=== PATIENT | male | born 1955 ===

== ENCOUNTER 2018-02-04 07:45 | Day surgery (SDC) | payer SELFPAY ==
[2018-02-01 10:53] VITALS: BMI 28.7
[2018-02-04] MEDS: cefTRIAXone 1 gm 1 GM/100 ML BAG IVPB ONE (09:30)
[2018-02-04] MEDS: Lidocaine 2% Jelly (Uro-Jet) ONE (09:32)
[2018-02-04] MEDS: Gentamicin 160 MG in Sodium Chloride 0.9% 100 ML IVPB ONE (09:35)
[2018-02-04] MEDS ORDERED: HYDROmorphone 0.5 mg/0.5 ml ISec IVP PRN (10:03)
[2018-02-04] MEDS ORDERED: Lidocaine 2% Jelly (Uro-Jet) ONE (10:19)
[2018-02-04 11:16] VITALS: RESP 18; TEMP 97.7
[2018-02-04 11:51] VITALS: BP 143/81; PULSE 65; O2SAT 99
--- NOTE | 2018-02-04 20:57 | OP ---
PROCEDURE DATE: 02/04/2018 PREOPERATIVE DIAGNOSIS: Elevated prostate specific antigen of 3.7. POSTOPERATIVE DIAGNOSIS: Elevated prostate specific antigen of 3.7 and benign prostatic hyperplasia. PROCEDURES: Transrectal ultrasound diagnostic, transrectal ultrasound guidance, and prostatic biopsy. SURGEON: Satish Castelan MD. DESCRIPTION OF PROCEDURE: The patient confirmed in the holding area, he has not taken any NSAIDs for over a week. Potential side-effects that could include serious life threatening sepsis were mentioned to the patient, and he was instructed to call my office today when he gets home for a followup appointment in one week in the office. The patient was brought to the operating room, placed in a lithotomy position, prepped and draped in usual fashion. He was pre-medicated with 1 g of Rocephin and 160 mg of gentamicin IV piggyback. The ultrasound transducer was introduced in the rectum and examination of the prostate revealed no areas of calcifications. There was one area of hypoechogenicity in the right side, and we were able to biopsy this when we did the right central biopsies. Total gland volume was 63 cm although admittedly I had some difficulty in the bladder area visualization and perhaps was even bigger and what could I demonstrate whether there was a median lobe; however, median lobe had been seen previously on cystoscopy. We now turned our attention to biopsies. Two biopsies per sextant were sent to pathology and then we maintained moderate pressure for 5 minutes afterwards to promote hemostasis. I should mention that the rectum was cleansed with Betadine prior to starting the procedure. We removed the transducer after the procedure. No bleeding was noted. The patient tolerated the procedure well. Satish Castelan MD
== END 2018-02-04 11:40 | disposition home or self-care (01) ==
LOC: C.SDS 07:45
PROVIDERS: ATTEND Urology
DX: R97.20 Elevated prostate specific antigen [PSA] (principal); N40.0 Benign prostatic hyperplasia without lower urinary tract symptoms

== ENCOUNTER 2018-08-17 08:39 | Outpatient (CLI) | payer SELFPAY | END 2018-08-17 08:40 | disposition home or self-care (01) | LOC: C.USIC 08:39 ==

== ENCOUNTER 2018-09-07 13:00 | Observation (INO) | payer SELFPAY | END 2018-09-08 14:50 | disposition home or self-care (01) | LOC: C.SDS 13:00 → C.9S 16:47 → C.6T 18:11 | DX: N40.1 Benign prostatic hyperplasia with lower urinary tract symptoms (principal); R33.9 Retention of urine, unspecified; E78.5 Hyperlipidemia, unspecified; Z87.891 Personal history of nicotine dependence; E11.9 Type 2 diabetes mellitus without complications ==

== ENCOUNTER 2018-10-06 11:55 | Observation (INO) | payer MEDICAID, OTHER ==
[2018-10-06 11:55] VITALS: BMI 28.7
--- NOTE | 2018-10-06 12:10 | C.PDOC ---
History Of Present Illness Patient is a 62 year old male who presents to the ED c/o hematuria with blood clots x2days. Patient reports that he has had hematuria before and had a prostate procedure done with Dr. Brooks, but afterwards he began to bleed again. He denies any other associated symptoms. Time Seen by Provider: 10/06/18 12:03 Chief Complaint (Nursing): Male Genitourinary History Per: Patient History/Exam Limitations: no limitations Onset/Duration Of Symptoms: Days (2) Current Symptoms Are (Timing): Still Present Associated Symptoms: Urinary Symptoms Recent travel outside of the [place]: No Additional History Per: Patient Past Medical History Reviewed: Historical Data, Nursing Documentation, Vital Signs Vital Signs: Last Vital Signs Temp 98.7 F 10/06/18 11:57 Pulse 70 10/06/18 11:57 Resp 16 10/06/18 11:57 BP 131/78 10/06/18 11:57 Pulse Ox 99 10/06/18 11:57 Primary Care Provider: Fabienne Toussaint - Medical History PMH: HTN, Hyperlipidemia Denies: Chronic Kidney Disease Surgical History: Endoscopy - [facility] Procedures ENDOSCOPIC CONTROL OF GASTRIC OR DUODENAL BLEEDING (12/13/99) PACKED CELL TRANSFUSION (12/13/99) Family History: States: No Known Family Hx - Social History Hx Alcohol Use: Yes Hx Substance Use: No - Immunization History Hx Tetanus Toxoid Vaccination: No Hx Influenza Vaccination: No Hx Pneumococcal Vaccination: Yes Review Of Systems Except As Marked, All Systems Reviewed And Found Negative. Constitutional: Negative for: Fever, Chills Gastrointestinal: Negative for: Nausea, Vomiting, Abdominal Pain Genitourinary: Positive for: Hematuria. Negative for: Frequency Physical Exam - Physical Exam Appears: Non-toxic, No Acute Distress Skin: Warm, Dry Head: Atraumatic, Normacephalic Eye(s): bilateral: Normal Inspection Neck: Normal ROM, Supple Cardiovascular: Rhythm Regular, No Murmur Respiratory: Normal Breath Sounds, No Rales, No Rhonchi, No Wheezing Gastrointestinal/Abdominal: Soft, No Tenderness, No Distention, No Guarding, No Rebound Neurological/Psych: Oriented x3, Normal Speech, Normal Cognition ED Course And Treatment - Laboratory Results Result Diagrams: 10/06/18 12:38 10/06/18 12:38 Lab Interpretation: No Acute Changes ECG: Interpreted By Me ECG Rhythm: Sinus Bradycardia O2 Sat by Pulse Oximetry: 99 (on RA) Pulse Ox Interpretation: Normal - Radiology CXR: Interpreted by Me CXR Interpretation: Yes: No Acute Disease Progress Note: Case discussed with Dr Kenji Brooks who request admission for cysto tomorrow. Case discussed with Dr Arvizu and accepts patient to OBS Reassessment Condition: Unchanged - Physician Consult Information Physician Contacted: Christine Arvizu Outcome Of Conversation: OBS Medical Decision Making Medical Decision Making: Plan: Labs Urine Culture UA Disposition Discussed With Dr.: Christine Arvizu Counseled Patient/Family Regarding: Studies Performed, Diagnosis, Need For Followup - Disposition Disposition: HOSPITALIZED Disposition Time: 14:00 Condition: GOOD - POA Present On Arrival: None - Clinical Impression Clinical Impression: Hematuria - PA / DIRECTOR OF GLOBAL SALES / Resident Statement MD/DO has reviewed & agrees with the documentation as recorded. - Scribe Statement The provider has reviewed the documentation as recorded by the Luther Anders All medical record entries made by the Robertoibe were at my direction and personally dictated by me. I have reviewed the chart and agree that the record accurately reflects my personal performance of the history, physical exam, medical decision making, and the department course for this patient. I have also personally directed, reviewed, and agree with the discharge instructions and disposition.
[2018-10-06 12:49] LABS: BASO # 0.1 K/uL (0.0-0.2); BASO % 1.5 % (0.0-2.0); EOS # 0.5 K/uL (0.0-0.7); EOS % 7.3 % (0.0-4.0); HEMOGLOBIN 12.3 g/dL (12.0-18.0); LYMPH # 2.3 K/uL (1.0-4.3); LYMPH % 35.7 % (20.0-40.0); MEAN CELL VOLUME 89.9 fL (80.0-94.0); MEAN CORPUSCULAR HGB CONC 34.5 g/dL (33.0-37.0); MEAN PLATELET VOLUME 9.2 fL (7.2-11.7); MONO # 0.6 K/uL (0.0-0.8); MONO % 9.4 % (0.0-10.0); NEUT % 46.1 % (50.0-75.0); NRBC % 0.1 % (0.0-2.0); RBC 3.98 Mil/uL (4.40-5.90); RED CELL DISTRIBUTION WIDTH 13.3 % (11.5-14.5); WHITE BLOOD COUNT 6.4 K/uL (4.8-10.8)
[2018-10-06 13:00] LABS: INR 1.1; PROTHROMBIN TIME 12.3 SECONDS (9.7-12.2)
[2018-10-06 13:06] LABS: ALB/GLOB RATIO 1.6 (1.0-2.1); ALBUMIN 4.5 g/dL (3.5-5.0); ALT/SGPT 20 U/L (21-72); AST/SGOT 36 U/L (17-59); BLOOD UREA NITROGEN 29 mg/dL (9-20); CALCIUM 9.5 mg/dl (8.6-10.4); GFR NON-AFRICAN AMERICAN > 60; URINE BILIRUBIN NEGATIVE (NEGATIVE); URINE BLOOD 3+ (NEGATIVE); URINE CLARITY Turbid (Clear); URINE COLOR Red (YELLOW); URINE GLUCOSE (UA) 1+ mg/dL (Normal); URINE LEUKOCYTE ESTERASE NEG Leu/uL (Negative); URINE PROTEIN 2+ mg/dL (NEGATIVE); URINE UROBILINOGEN NORMAL mg/dL (0.2-1.0)
--- NOTE | 2018-10-06 14:26 | CP.PCM.HP ---
History of Present Illness - History of Present Illness History of Present Illness: PGY1 H and P for Dr. Almonte This is a 62 year old male with history of NIDDM2, HTN, HLD, glaucoma, BPH who preents with a 2 day history of hematuria. Pt underwent TURP apprimxatley [address] Satish Brooks, and has since had dark colored urine. However, the bright red blood colored urine started 2 days ago. He endorses a small amount of pain at the end of urination and is unable to characterize it. Denies fever, chills, headache, lightheadedness, chest pain, sob, abdominal pain, n/v/d, dysuria, penile discharge, rectal pain, testicular pain or swelling, penile pain or swelling. Pt saw Dr. Kenji Walton in his office last Thursday, and was prescribed Finasteride 5 mg PO once daily and Doxycycline. Pt has been taking these new medications and prior home medications. PMH:NIDDM2, HTN, HLD, glaucoma, BPH PSH: TURP, prostate biopsy Home meds: Lisinopril 5mg, metformin 500 BID, Brimonidine 1mL OU BID, ASA 81, Lipitor 10mg, Doxycycline, Finasteride 5 mg PO QD Allergies: NKDA Social hx:Patient quit smoking 2 months ago and smoked 1/4 of a pack/day, he admits social alcohol use, and denies use of recreational drugs Family hx: Father , mother alive PMD: Dr. Toussaint Urology: Dr. Kenji Brooks Present on Admission - Present on Admission Any Indicators Present on Admission: No Review of Systems - Review of Systems All systems: reviewed and no additional remarkable complaints except (as per HPI) Past Patient History - Infectious Disease Hx of Infectious Diseases: None - Past Medical History & Family History Past Medical History?: Yes - Past Social History Smoking Status: Former Smoker - CARDIAC Hx Hypertension: Yes - PULMONARY Hx Respiratory Disorders: No - NEUROLOGICAL Hx Neurological Disorder: No - HEENT Hx HEENT Problems: Yes Hx Glaucoma: Yes - RENAL Hx Chronic Kidney Disease: No - ENDOCRINE/METABOLIC Hx Endocrine Disorders: No Hx Diabetes Mellitus Type 2: Yes - HEMATOLOGICAL/ONCOLOGICAL Hx Blood Disorders: No - INTEGUMENTARY Hx Dermatological Problems: No - MUSCULOSKELETAL/RHEUMATOLOGICAL Hx Musculoskeletal Disorders: No - GASTROINTESTINAL Hx Gastrointestinal Disorders: Yes Hx Ulcer: Yes (GASTRIC ULCER) - GENITOURINARY/GYNECOLOGICAL Hx Genitourinary Disorders: Yes Hx Prostate Cancer: Yes (ABNORMAL PSA) Hx Prostate Problems: Yes (BPH) - PSYCHIATRIC Hx Substance Use: No - SURGICAL HISTORY Hx Surgeries: Yes Other/Comment: HX: TRANSRECTAL PROSTATE BIOPSY. CYSTO - ANESTHESIA Hx Anesthesia: Yes Hx Anesthesia Reactions: No Hx Malignant Hyperthermia: No Meds Allergies/Adverse Reactions: Allergies Allergy/AdvReac Type Severity Reaction Status Date / Time No Known Allergies Allergy Verified 10/06/18 11:57 Physical Exam - Constitutional Appears: Non-toxic, No Acute Distress - Head Exam Head Exam: ATRAUMATIC, NORMAL INSPECTION - Eye Exam Eye Exam: EOMI, Normal appearance - ENT Exam ENT Exam: Mucous Membranes Moist - Neck Exam Neck exam: Positive for: Normal Inspection - Respiratory Exam Respiratory Exam: Clear to Auscultation Bilateral. absent: Decreased Breath Sounds, Rales, Rhonchi, Wheezes, Respiratory Distress, Stridor - Cardiovascular Exam Cardiovascular Exam: REGULAR RHYTHM. absent: Tachycardia, Diastolic murmur, +S1, +S2 - GI/Abdominal Exam GI & Abdominal Exam: Normal Bowel Sounds, Soft. absent: Distended, Firm, Guarding, Rebound, Tenderness Additional comments: (-) suprapubic tenderness Results - Vital Signs Recent Vital Signs: Last Vital Signs Temp 98.7 F 10/06/18 11:57 Pulse 70 10/06/18 11:57 Resp 16 10/06/18 11:57 BP 131/78 10/06/18 11:57 Pulse Ox 99 10/06/18 13:46 - Labs Result Diagrams: 10/06/18 12:38 10/06/18 12:38 Labs: Laboratory Results - last 24 hr 10/06/18 10/06/18 10/06/18 12:38 12:38 12:38 WBC 6.4 RBC 3.98 L Hgb 12.3 Hct 35.8 MCV 89.9 MCH 31.0 MCHC 34.5 RDW 13.3 Plt Count 240 MPV 9.2 Neut % (Auto) 46.1 L Lymph % (Auto) 35.7 [place] % (Auto) 9.4 Eos % (Auto) 7.3 H Baso % (Auto) 1.5 Neut # (Auto) 3.0 Lymph # (Auto) 2.3 [place] # (Auto) 0.6 Eos # (Auto) 0.5 Baso # (Auto) 0.1 PT 12.3 H INR 1.1 Sodium Potassium Chloride Carbon Dioxide Anion Gap BUN Creatinine Est GFR ( Amer) Est GFR (Non-Af Amer) Random Glucose Calcium Total Bilirubin AST ALT Alkaline Phosphatase Total Protein Albumin Globulin Albumin/Globulin Ratio Urine Color Red Urine Clarity Turbid Urine pH 6.0 Ur Specific [place] 1.024 Urine Protein 2+ H Urine Glucose (UA) 1+ H Urine Ketones Negative Urine Blood 3+ H Urine Nitrate Negative Urine Bilirubin Negative Urine Urobilinogen Normal Ur Leukocyte Esterase Neg Urine WBC (Auto) 10 H Urine RBC (Auto) 17933 H 10/06/18 12:38 WBC RBC Hgb Hct MCV MCH MCHC RDW Plt Count MPV Neut % (Auto) Lymph % (Auto) [place] % (Auto) Eos % (Auto) Baso % (Auto) Neut # (Auto) Lymph # (Auto) [place] # (Auto) Eos # (Auto) Baso # (Auto) PT INR Sodium 137 Potassium 4.6 Chloride 103 Carbon Dioxide 24 Anion Gap 15 BUN 29 H Creatinine 1.0 Est GFR ( Amer) > 60 Est GFR (Non-Af Amer) > 60 Random Glucose 112 H Calcium 9.5 Total Bilirubin 0.5 AST 36 ALT 20 L Alkaline Phosphatase 86 Total Protein 7.3 Albumin 4.5 Globulin 2.8 Albumin/Globulin Ratio 1.6 Urine Color Urine Clarity Urine pH Ur Specific [place] Urine Protein Urine Glucose (UA) Urine Ketones Urine Blood Urine Nitrate Urine Bilirubin Urine Urobilinogen Ur Leukocyte Esterase Urine WBC (Auto) Urine RBC (Auto) Assessment & Plan - Assessment and Plan (Free Text) Assessment: 62 year old male with history of NIDDM2, HTN, HLD, glaucoma, BPH who is presents with hematuria. Plan: Hematuria, acute on chronic History of BPH UA shows 2+ protein, 1+ glcose, 3+ blood, 10 WBC, [address] Satish Brooks, urology, consulted. Plan for cystoscopy 10/07 as per BONI Orozco who spoke with Dr. Brooks in the ED. F/u further recommendations Continue home Flomax 0.4mg po QD, Finasteride 5 mg PO QD Will start Ciprofloxacin 400 mg IVPB Q12 Pre-op CXR and EKG ordered History of hypertension, chronic Continue home Lisinopril 10 mg PO tomorrow History of hyperlipidemia, chronic Crestor 20mg PO HS History of diabetes, chronic Hold metformin for now Insulin sliding scale Accucheck ACHS Hypoglycemia protocol History of glaucoma, chronic Timolol eye drops Brimonidine eye drops Prophylaxis: Diabetic diet SCDs VTE CI due to hematuria and planned procedure No indication for Gi ppx Plan: NPO past midnight except meds for cystoscopy 10/[address] Gage grimaldo PGY1
[2018-10-06] MEDS ORDERED: Glucagon Recombinant 1 mg Inj IM PRN (14:32)
[2018-10-06] MEDS ORDERED: Dextrose 50% SYRINGE Inj (50 ml) IV PRN (14:32)
--- NOTE | 2018-10-06 15:38 | RAD ---
HISTORY: Cough r/o CHF COMPARISON: Noncontrast chest CT performed 08/17/18 TECHNIQUE: Chest PA and lateral, 2 views FINDINGS: LUNGS: No focal consolidation. Please note that chest x-ray has limited sensitivity for the detection of pulmonary masses. PLEURA: No significant pleural effusion identified. No definite pneumothorax . CARDIOVASCULAR: Heart size appears within normal limits. Atherosclerotic calcifications of an ectatic aorta. OSSEOUS STRUCTURES: Degenerative changes of the spine. VISUALIZED UPPER ABDOMEN: Unremarkable. OTHER FINDINGS: None. IMPRESSION: No acute findings identified.
[2018-10-06] MEDS: Ciprofloxacin 400mg/200ml D5W 400 MG/200 ML BAG IVPB SCH (16:22)
[2018-10-06] MEDS: (Novolin R) Insulin Human Regular 100 units/ml vial SC SCH ×2 (16:31→21:49)
--- NOTE | 2018-10-06 20:42 | CP.PCM.CON ---
History of Present Illness - History of Present Illness History of Present Illness: UROLOGY CONSULTATION Past Patient History - Infectious Disease Hx of Infectious Diseases: None - Past Medical History & Family History Past Medical History?: Yes - Past Social History Smoking Status: Former Smoker - CARDIAC Hx Hypertension: Yes - PULMONARY Hx Respiratory Disorders: No - NEUROLOGICAL Hx Neurological Disorder: No - HEENT Hx HEENT Problems: Yes Hx Glaucoma: Yes - RENAL Hx Chronic Kidney Disease: No - ENDOCRINE/METABOLIC Hx Endocrine Disorders: No Hx Diabetes Mellitus Type 2: Yes - HEMATOLOGICAL/ONCOLOGICAL Hx Blood Disorders: No - INTEGUMENTARY Hx Dermatological Problems: No - MUSCULOSKELETAL/RHEUMATOLOGICAL Hx Musculoskeletal Disorders: No - GASTROINTESTINAL Hx Gastrointestinal Disorders: Yes Hx Ulcer: Yes (GASTRIC ULCER) - GENITOURINARY/GYNECOLOGICAL Hx Genitourinary Disorders: Yes Hx Prostate Cancer: Yes (ABNORMAL PSA) Hx Prostate Problems: Yes (BPH) - PSYCHIATRIC Hx Substance Use: No - SURGICAL HISTORY Hx Surgeries: Yes Other/Comment: HX: TRANSRECTAL PROSTATE BIOPSY. CYSTO - ANESTHESIA Hx Anesthesia: Yes Hx Anesthesia Reactions: No Hx Malignant Hyperthermia: No Meds Allergies/Adverse Reactions: Allergies Allergy/AdvReac Type Severity Reaction Status Date / Time No Known Allergies Allergy Verified 10/06/18 11:57 - Medications Medications: Current Medications Brimonidine Tartrate (Alphagan 0.2% Opht) 0 ml OU DAILY SANDRA Dextrose (Dextrose 50% Inj) 0 ml IV STAT PRN; Protocol PRN Reason: Hypoglycemia Protocol Dextrose (Glutose 15) 0 gm PO ONCE PRN; Protocol PRN Reason: Hypoglycemia Protocol Finasteride (Proscar) 5 mg PO DAILY SANDRA Glucagon (Glucagen Diagnostic Kit) 0 mg IM STAT PRN; Protocol PRN Reason: Hypoglycemia Protocol Dextrose (Dextrose 5% In Water 1000 Ml) 1,000 mls @ 0 mls/hr IV .Q0M PRN; Pro tocol PRN Reason: Hypoglycemia Protocol Ciprofloxacin (Cipro 400mg/200ml Dsw) 400 mg in 200 mls @ 133 mls/hr IVPB Q12H SANDRA; Protocol Last Admin: 10/06/18 16:22 Dose: 133 mls/hr Insulin Human Regular (Novolin R) 0 unit SC ACHS SANDRA; Protocol Last Admin: 10/06/18 16:31 Dose: Not Given Lisinopril (Zestril) 10 mg PO DAILY SANDRA Rosuvastatin Calcium (Crestor) 20 mg PO HS SANDRA Tamsulosin HCl (Flomax) 0.4 mg PO DAILY [facility] Timolol Maleate (Timoptic 0.5% Ophth Soln) 1 drop OU BID SANDRA Last Admin: 10/06/18 17:19 Dose: 1 drop Results - Vital Signs Recent Vital Signs: Last Vital Signs Temp 97.8 F 10/06/18 15:56 Pulse 55 L 10/06/18 15:56 Resp 18 10/06/18 15:56 BP 147/80 10/06/18 15:56 Pulse Ox 99 10/06/18 17:03 - Labs Result Diagrams: 10/06/18 12:38 10/06/18 12:38 Labs: Laboratory Results - last 24 hr 10/06/18 10/06/18 10/06/18 12:38 12:38 12:38 WBC 6.4 RBC 3.98 L Hgb 12.3 Hct 35.8 MCV 89.9 MCH 31.0 MCHC 34.5 RDW 13.3 Plt Count 240 MPV 9.2 Neut % (Auto) 46.1 L Lymph % (Auto) 35.7 [place] % (Auto) 9.4 Eos % (Auto) 7.3 H Baso % (Auto) 1.5 Neut # (Auto) 3.0 Lymph # (Auto) 2.3 [place] # (Auto) 0.6 Eos # (Auto) 0.5 Baso # (Auto) 0.1 PT 12.3 H INR 1.1 Sodium Potassium Chloride Carbon Dioxide Anion Gap BUN Creatinine Est GFR ( Amer) Est GFR (Non-Af Amer) POC Glucose (mg/dL) Random Glucose Calcium Total Bilirubin AST ALT Alkaline Phosphatase Total Protein Albumin Globulin Albumin/Globulin Ratio Urine Color Red Urine Clarity Turbid Urine pH 6.0 Ur Specific [place] 1.024 Urine Protein 2+ H Urine Glucose (UA) 1+ H Urine Ketones Negative Urine Blood 3+ H Urine Nitrate Negative Urine Bilirubin Negative Urine Urobilinogen Normal Ur Leukocyte Esterase Neg Urine WBC (Auto) 10 H Urine RBC (Auto) 77759 H Blood Type Antibody Screen 10/06/18 10/06/18 10/06/18 12:38 15:56 16:23 WBC RBC Hgb Hct MCV MCH MCHC RDW Plt Count MPV Neut % (Auto) Lymph % (Auto) [place] % (Auto) Eos % (Auto) Baso % (Auto) Neut # (Auto) Lymph # (Auto) [place] # (Auto) Eos # (Auto) Baso # (Auto) PT INR Sodium 137 Potassium 4.6 Chloride 103 Carbon Dioxide 24 Anion Gap 15 BUN 29 H Creatinine 1.0 Est GFR ( Amer) > 60 Est GFR (Non-Af Amer) > 60 POC Glucose (mg/dL) 92 Random Glucose 112 H Calcium 9.5 Total Bilirubin 0.5 AST 36 ALT 20 L Alkaline Phosphatase 86 Total Protein 7.3 Albumin 4.5 Globulin 2.8 Albumin/Globulin Ratio 1.6 Urine Color Urine Clarity Urine pH Ur Specific [place] Urine Protein Urine Glucose (UA) Urine Ketones Urine Blood Urine Nitrate Urine Bilirubin Urine Urobilinogen Ur Leukocyte Esterase Urine WBC (Auto) Urine RBC (Auto) Blood Type B POSITIVE Antibody Screen Negative Assessment & Plan - Assessment and Plan (Free Text) Assessment: IMP: HEMATURIA BPH DM HYPERTENSION YS - Date & Time Date: 10/06/18 Time: 14:50
[2018-10-07 00:03] VITALS: RESP 20
[2018-10-07] MEDS: Ciprofloxacin 400mg/200ml D5W 400 MG/200 ML BAG IVPB SCH (04:08)
[2018-10-07] MEDS: (Novolin R) Insulin Human Regular 100 units/ml vial SC SCH ×2 (07:41→11:11)
--- NOTE | 2018-10-07 07:59 | CP.PCM.PCO ---
Physician Communication Note - Physician Communication Note Physician Communication Note: Pt is medically optimized for noncardiac procedure. [place] 6%. Low risk.
[2018-10-07 08:05] LABS: BASO # 0.1 K/uL (0.0-0.2); BASO % 1.2 % (0.0-2.0); EOS # 0.5 K/uL (0.0-0.7); LYMPH # 1.7 K/uL (1.0-4.3); LYMPH % 39.4 % (20.0-40.0); MEAN CELL VOLUME 89.7 fL (80.0-94.0); MEAN CORPUSCULAR HEMOGLOBIN 30.8 pg (27.0-31.0); MEAN CORPUSCULAR HGB CONC 34.4 g/dL (33.0-37.0); MEAN PLATELET VOLUME 9.3 fL (7.2-11.7); MONO # 0.5 K/uL (0.0-0.8); MONO % 10.7 % (0.0-10.0); NEUT # 1.7 K/uL (1.8-7.0); NEUT % 37.7 % (50.0-75.0); RBC 3.89 Mil/uL (4.40-5.90); RED CELL DISTRIBUTION WIDTH 13.1 % (11.5-14.5); WHITE BLOOD COUNT 4.4 K/uL (4.8-10.8)
[2018-10-07 08:08] VITALS: BP 128/78; PULSE 60; TEMP 97.7; O2SAT 95
[2018-10-07 08:12] LABS: ALB/GLOB RATIO 1.5 (1.0-2.1); ALBUMIN 3.9 g/dL (3.5-5.0); ALT/SGPT 19 U/L (21-72); AST/SGOT 24 U/L (17-59); BLOOD UREA NITROGEN 22 mg/dL (9-20); GFR NON-AFRICAN AMERICAN > 60
--- NOTE | 2018-10-07 08:15 | CON ---
DATE: 10/06/2018 UROLOGY CONSULTATION REQUESTED BY: Christine Arvizu DO FILLED BY: Edilma Brooks MD REASON FOR CONSULTATION: Hematuria. HISTORY OF PRESENT ILLNESS: The patient is a 62-year-old male with hematuria. The patient has had intermittent hematuria over the past several weeks. The patient reports that he is voiding with fair urinary stream. The patient has good urinary control. No recent fever or rigors. No flank pain. No nausea or vomiting. The patient has history of BPH. The patient underwent previous prostatic surgery, transurethrally. The patient has increased hematuria today. He presented to emergency room. He is now admitted for evaluation and therapy. The patient has good appetite. The patient reports normal bowel movements. Occasional constipation. PAST MEDICAL HISTORY: The patient has history of hypertension. The patient has history of diabetes. See attached medications. PHYSICAL EXAMINATION: GENERAL: The patient is a well-developed, well-nourished male, appearing his stated age. The patient is awake and alert. ABDOMEN: Soft, nontender, nondistended. No mass or organomegaly. BACK: No CVA tenderness. LABORATORY DATA: Reviewed. The white blood count is 6400, hematocrit 35.8. Platelet count is 240,000. BUN 29, creatinine 1. Urinalysis revealed red urine; 60,000 red blood cells, 10 white blood cells per high-power field. IMPRESSION: Hematuria, history of benign prostate hypertrophy, history of previous transurethral surgery, possible transurethral resection of the prostate, possible green light laser for vaporization was performed. RECOMMENDATIONS AND PLAN: Monitor urine output. Monitor vital signs. Possible need for catheter. Possible need for cystoscopy. Further therapy to follow according to the patient's clinical course. Recommend obtaining further lab testing including urine cytology. Urine culture. Possible need for upper tract radiologic evaluation as well. Thank you for recommending the patient for urology consultation. Edilma Brooks MD cc: DO Jose Martin Man MD
[2018-10-07] MEDS ORDERED: Brimonidine 0.2% Opth Sol (5ml) OU SCH (10:00)
--- NOTE | 2018-10-07 11:33 | CP.PCM.DIS ---
Provider - Provider Date of Admission: 10/06/18 14:20 Attending physician: Christine Arvizu DO Consults: 10/06/18 14:31 Urology Consult Routine Comment: Consulting Provider: Satish Brooks Consulting Physician: Satish Brooks Reason for Consult: hematuria, planned cystoscopy 10/07 Time Spent in preparation of Discharge (in minutes): 35 Diagnosis - Discharge Diagnosis (1) Hypertension Status: Chronic (2) Hypercholesteremia Status: Chronic (3) Non-insulin dependent type 2 diabetes mellitus Status: Chronic (4) Glaucoma Status: Chronic (5) BPH (benign prostatic hyperplasia) Status: Chronic Hospital Course - Lab Results Lab Results: Most Recent Lab Values WBC 4.4 K/uL (4.8-10.8) L 10/07/18 07:49 RBC 3.89 Mil/uL (4.40-5.90) L 10/07/18 07:49 Hgb 12.0 g/dL (12.0-18.0) 10/07/18 07:49 Hct 34.9 % (35.0-51.0) L 10/07/18 07:49 MCV 89.7 fL (80.0-94.0) 10/07/18 07:49 MCH 30.8 pg (27.0-31.0) 10/07/18 07:49 MCHC 34.4 g/dL (33.0-37.0) 10/07/18 07:49 RDW 13.1 % (11.5-14.5) 10/07/18 07:49 Plt Count 213 K/uL (130-400) 10/07/18 07:49 MPV 9.3 fL (7.2-11.7) 10/07/18 07:49 Neut % (Auto) 37.7 % (50.0-75.0) L 10/07/18 07:49 Lymph % (Auto) 39.4 % (20.0-40.0) 10/07/18 07:49 [place] % (Auto) 10.7 % (0.0-10.0) H 10/07/18 07:49 Eos % (Auto) 11.0 % (0.0-4.0) H 10/07/18 07:49 Baso % (Auto) 1.2 % (0.0-2.0) 10/07/18 07:49 Neut # (Auto) 1.7 K/uL (1.8-7.0) L 10/07/18 07:49 Lymph # (Auto) 1.7 K/uL (1.0-4.3) 10/07/18 07:49 [place] # (Auto) 0.5 K/uL (0.0-0.8) 10/07/18 07:49 Eos # (Auto) 0.5 K/uL (0.0-0.7) 10/07/18 07:49 Baso # (Auto) 0.1 K/uL (0.0-0.2) 10/07/18 07:49 PT 12.3 SECONDS (9.7-12.2) H 10/06/18 12:38 INR 1.1 10/06/18 12:38 Sodium 138 mmol/L (132-148) 10/07/18 07:49 Potassium 4.7 mmol/L (3.6-5.2) 10/07/18 07:49 Chloride 101 mmol/L (98-107) 10/07/18 07:49 Carbon Dioxide 29 mmol/L (22-30) 10/07/18 07:49 Anion Gap 12 (10-20) 10/07/18 07:49 BUN 22 mg/dL (9-20) H 10/07/18 07:49 Creatinine 0.9 mg/dL (0.8-1.5) 10/07/18 07:49 Est GFR ( Amer) > 60 10/07/18 07:49 Est GFR (Non-Af Amer) > 60 10/07/18 07:49 POC Glucose (mg/dL) 130 mg/dL (65-110) H 10/07/18 10:59 Random Glucose 125 mg/dL (75-110) H 10/07/18 07:49 Calcium 9.0 mg/dl (8.6-10.4) 10/07/18 07:49 Phosphorus 3.5 mg/dL (2.5-4.5) 10/07/18 07:49 Magnesium 2.0 mg/dL (1.6-2.3) 10/07/18 07:49 Total Bilirubin 0.5 mg/dL (0.2-1.3) 10/07/18 07:49 AST 24 U/L (17-59) 10/07/18 07:49 ALT 19 U/L (21-72) L 10/07/18 07:49 Alkaline Phosphatase 64 U/L (38-126) 10/07/18 07:49 Total Protein 6.5 g/dL (6.3-8.3) 10/07/18 07:49 Albumin 3.9 g/dL (3.5-5.0) 10/07/18 07:49 Globulin 2.6 gm/dL (2.2-3.9) 10/07/18 07:49 Albumin/Globulin Ratio 1.5 (1.0-2.1) 10/07/18 07:49 Urine Color Red (YELLOW) 10/06/18 12:38 Urine Clarity Turbid (Clear) 10/06/18 12:38 Urine pH 6.0 (5.0-8.0) 10/06/18 12:38 Ur Specific [place] 1.024 (1.003-1.030) 10/06/18 12:38 Urine Protein 2+ mg/dL (NEGATIVE) H 10/06/18 12:38 Urine Glucose (UA) 1+ mg/dL (Normal) H 10/06/18 12:38 Urine Ketones Negative mg/dL (NEGATIVE) 10/06/18 12:38 Urine Blood 3+ (NEGATIVE) H 10/06/18 12:38 Urine Nitrate Negative (NEGATIVE) 10/06/18 12:38 Urine Bilirubin Negative (NEGATIVE) 10/06/18 12:38 Urine Urobilinogen Normal mg/dL (0.2-1.0) 10/06/18 12:38 Ur Leukocyte Esterase Neg [place]/uL (Negative) 10/06/18 12:38 Urine WBC (Auto) 10 /hpf (0-5) H 10/06/18 12:38 Urine RBC (Auto) 50046 /hpf (0-3) H 10/06/18 12:38 Blood Type B POSITIVE 10/06/18 15:56 Antibody Screen Negative 10/06/18 15:56 - Hospital Course Hospital Course: On admission: This is a 62 year old male with history of NIDDM2, HTN, HLD, glaucoma, BPH who preents with a 2 day history of hematuria. Pt underwent TURP apprimxatley [address] Satish Brooks, and has since had dark colored urine. However, the bright red blood colored urine started 2 days ago. He endorses a small amount of pain at the end of urination and is unable to characterize it. Denies fever, chills, headache, lightheadedness, chest pain, sob, abdominal pain, n/v/d, dysuria, penile discharge, rectal pain, testicular pain or swelling, penile pain or swelling. Pt saw Dr. Kenji Walton in his office last Thursday, and was prescribed Finasteride 5 mg PO once daily and Doxycycline. Pt has been taking these new medications and prior home medications. Hospital course: Restarted on home medications. Cystoscopy was planned for 10/07, but pt's hematuria resolved overnight. Cystoscopy was cancelled. Case discussed with Dr. Kenji Brooks who agrees with discharge home and instructed pt should follow up outpatient. On discharge interview, pt is resting comfortably. Denies fever, chills, headache, lightheadedness, chest pain, sob, abdominal pain, n/v/d, dysuria, hematuria, penile discharge, rectal pain, testicular pain or swelling, penile pain or swelling. This is a summary of the hospital course, please see EMR for full details. Discharge Exam - Head Exam Head Exam: ATRAUMATIC, NORMAL INSPECTION - Eye Exam Eye Exam: EOMI, Normal appearance - ENT Exam ENT Exam: Mucous Membranes Moist - Respiratory Exam Respiratory Exam: Clear to PA & Lateral. absent: Wheezes, Respiratory Distress, Stridor - Cardiovascular Exam Cardiovascular Exam: REGULAR RHYTHM, +S1, +S2. absent: Tachycardia Additional comments: 2+ pulses in bilateral upper and lower distal extremities - GI/Abdominal Exam GI & Abdominal Exam: Normal Bowel Sounds. absent: Distended, Firm, Guarding, Soft, Tenderness Additional comments: (-) suprapubic tenderness - Extremities Exam Additional comments: no calf tenderness, no pedal edema - Back Exam Back exam: NORMAL INSPECTION. absent: CVA tenderness (L), CVA tenderness (R) - Neurological Exam Neurological exam: Alert, Oriented x3 - Psychiatric Exam Psychiatric exam: Normal Affect, Normal Mood - Skin Skin Exam: Dry, Intact, Normal Color Discharge Plan - Discharge Medications Prescriptions: Finasteride [Proscar] 5 mg PO DAILY #30 tab Tamsulosin [Flomax] 0.4 mg PO DAILY #30 cap - Follow Up Plan Condition: GOOD Disposition: HOME/ ROUTINE Instructions: Blood in the Urine (Hematuria) in Adults Additional Instructions: Pt is medically stable for discharge home. Pt should take home medications as previously prescribed. Prescriptions provided: Finasteride 5 mg one tab by mouth once daily. #30 Tamsulosin 0.4 mg one tab by mouth once daily. #30 Please follow up with Dr. Brooks within 1 week of discharge home. Return to ED if any increase symptoms or difficulty passing urine Instructions explained to pt who understands and agrees with discharge plan. Referrals: Satish Brooks MD [Staff Provider] -
== END 2018-10-07 15:55 | disposition home or self-care (01) ==
LOC: C.ER 11:55 → C.3T 14:20
PROVIDERS: ADMIT Hospitalist; ATTEND Hospitalist
DX: R31.9 Hematuria, unspecified (principal); N40.0 Benign prostatic hyperplasia without lower urinary tract symptoms; I10 Essential (primary) hypertension; E78.5 Hyperlipidemia, unspecified; E11.9 Type 2 diabetes mellitus without complications; E78.00 Pure hypercholesterolemia, unspecified; H40.9 Unspecified glaucoma; K59.00 Constipation, unspecified; Z79.84 Long term (current) use of oral hypoglycemic drugs; Z79.899 Other long term (current) drug therapy; Z85.46 Personal history of malignant neoplasm of prostate; Z87.11 Personal history of peptic ulcer disease; Z87.891 Personal history of nicotine dependence
CPT/HCPCS: 36415; 71046; 80053; 81001; 82948; 83735; 84100; 85025; 85610; 86850; 86900; 87086; 99285; G0378; J0744